=== PATIENT | male | born 1960 | race Caucasian/White ===

== ENCOUNTER → 2018-04-05 | Outpatient (CLI) | payer OTHER ==
[2018-04-05 12:53] LABS: CALCIUM IONIZED 1.1 mmol/L (1.09-1.30)
[2018-04-05 13:10] LABS: ANION GAP 12.9 mmol/L (8-16); BLOOD UREA NITROGEN 15 mg/dL (7-26); BUN/CREATININE RATIO 19 (6-25); CALCIUM 9.2 mg/dL (8.4-10.2); CARBON DIOXIDE 32 mmol/L (22-29); CHLORIDE 98 mmol/L (98-107); CREATININE, SERUM 0.77 mg/dL (0.72-1.25); EST GLOMERULAR FILTRATION RATE > 60 ML/MIN (60-); GLUCOSE 112 mg/dL (74-118); POTASSIUM 3.9 mmol/L (3.5-5.1); SODIUM 139 mmol/L (136-145)
--- NOTE | 2018-04-05 18:14 | Diagnostic Imaging Report ---
PROCEDURE:MODIFIED BA. SWALLOW COMPARISON:None. INDICATIONS:DYSPHAGIA DISCUSSION: Fluoroscopic examination was performed in conjunction with speech pathology during swallowing of a variety of thin and thick liquid consistencies. RADIATION DOSE: Total Time: 2.2 minutes Cumulative area dose product: 2.397 cGym\S\2 Cumulative air kerma: 5.453 mGy FINDINGS: PREMATURE SPILLAGE: Over the base of the tongue: All consistencies To vallecula: All consistencies To pyriform sinus: Thin liquids induced portion of mixed mechanical soft LARYNGEAL PENETRATION: Deep penetration to level of the vocal cords with thin liquids induced portion of mixed mechanical soft ASPIRATION: Silent, minimal, dodie aspiration with thin liquids induced portion of mixed mechanical soft RESIDUE: VALLECULA: Minimal thin liquids, nectar, mixed mechanical soft. Moderate to severe with thin and thick pure and solid component PYRIFORM SINUS: Minimal with all consistencies PHARYNGEAL WALL: Minimal with all consistencies BASE OF TONGUE: Minimal with all consistencies CONCLUSION:Penetration and aspiration. Please see report from speech pathology for complete details. Dictated by: Pato Dunn M.D. on 04/05/2018 at 18:19 Electronically approved by: Pato Dunn M.D. on 04/05/2018 at 18:19
== END ==
LOC: DX 11:20
PROVIDERS: ATTEND Internal Medicine
DX: J18.9 Pneumonia, unspecified organism (principal)
CPT/HCPCS: 36415; 74230; 80048; 82330; 92611; G8996; G8997

== ENCOUNTER 2018-06-06 12:50 | Outpatient (RCR) | payer OTHER | END 2018-06-18 | LOC: ST 12:50 | PROVIDERS: ATTEND Internal Medicine | DX: R13.12 Dysphagia, oropharyngeal phase (principal) | CPT/HCPCS: 97139 ==